=== PATIENT | male | born 1950 ===

== ENCOUNTER 2017-04-23 08:35 | Emergency (ER) | payer OTHER, BC ==
[2017-04-23 08:38] VITALS: RESP 18
[2017-04-23] MEDS ORDERED: Naproxen 550 mg Tab PO STA (09:17)
[2017-04-23] MEDS ORDERED: Tmp-Smz 800 mg-160 mg DS Tab PO STA (09:17)
[2017-04-23] MEDS ORDERED: Silver Sulfadiazine 1% Cream (20 gm) TOP STA (09:18)
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
[2017-04-23] MEDS ORDERED: Tmp-Smz 800 mg-160 mg DS Tab ONE (09:37)
[2017-04-23] MEDS ORDERED: Silver Sulfadiazine 1% Cream (20 gm) ONE (09:37)
[2017-04-23] MEDS ORDERED: Naproxen 550 mg Tab PO ONE (09:37)
[2017-04-23 09:51] VITALS: BP 157/90; PULSE 105; TEMP 98.6
[2017-04-23 13:24] VITALS: O2SAT 98
== END 2017-04-23 09:57 | disposition home or self-care (01) ==
LOC: C.ER 08:35
DX: T22.212A Burn of second degree of left forearm, initial encounter (principal); X08.8XXA Exposure to other specified smoke, fire and flames, initial encounter